=== PATIENT | female | born 1980 | race African-American/Black ===

== ENCOUNTER 2016-10-05 06:06 | Inpatient (IN) | payer MEDICAID ==
[~2016-10-05] VITALS: Ht 167.6 cm; Wt 136.1 kg
[2016-10-05] MEDS ORDERED: SODIUM CHLORIDE 0.9% 1,000 ML IV ONE ×3 (06:31→09:05)
[2016-10-05 06:58] LABS: BASOPHILS % 0.8 % (0.0-2.0); EOSINOPHILS % 1.6 % (0.0-5.0); HEMATOCRIT. 28.2 % (36.0-48.0); HEMOGLOBIN. 9.3 g/dL (12.0-16.0); LYMPHOCYTES % 26.6 % (20.0-50.0); MEAN CORPUSCULAR HEMOGLOBIN 27.7 pg (28.0-32.0); MEAN CORPUSCULAR VOLUME 83.9 fL (81.0-99.0); MEAN PLATELET VOLUME 8.6 fl (7.4-10.4); MONOCYTES % 5.1 % (2.0-8.0); NEUTROPHILS % 65.9 % (40.0-76.0); PLATELET 269 x1000/uL (130-400); RED BLOOD CELL COUNT 3.36 mill/uL (4.2-5.4); RED CELL DISTRIBUTION WIDTH 15.2 % (11.6-14.6)
[2016-10-05 07:13] LABS: B-HCG QUANTITATIVE 264 mIU/mL (<3); CARBON DIOXIDE 26 mEq/L (21-32); CHLORIDE 106 mEq/L (98-107)
[2016-10-05] MEDS ORDERED: ONDANSETRON HCL 4MG/2ML VIAL IV ONE (07:15)
[2016-10-05] MEDS ORDERED: MORPHINE SULFATE 4 MG/ML CPJ (NOT FOR IM USE) IV ONE (07:15)
[2016-10-05 07:27] LABS: INR 1.1; PARTIAL THROMBOPLASTIN TIME 27.2 sec (24.0-34.0)
[2016-10-05] MEDS ORDERED: DEXT 5%/LR + PITOCIN 20UNITS/L 1,000 ML IV ONE (07:30)
[2016-10-05 09:05] LABS: HEMOGLOBIN 8.2 g/dL (12.0-16.0); MEAN CORPUSCULAR HEMOGLOBIN 27.9 pg (28.0-32.0); MEAN CORPUSCULAR VOLUME 85.1 fL (81.0-99.0); PLATELET 225 x1000/uL (130-400); RED BLOOD CELL COUNT 2.94 mill/uL (4.2-5.4); RED CELL DISTRIBUTION WIDTH 14.9 % (11.6-14.6)
[2016-10-05 12:00] VITALS: BP 106/70
[2016-10-05 16:00] VITALS: BP 106/70
[2016-10-05] MEDS ORDERED: ACETAMINOPHEN WITH CODEINE 300/30MG TABLET PO PRN ×2 (16:30)
[2016-10-05] MEDS ORDERED: GLYCERIN/WITCH HAZEL LEAF MEDICATED PAD TOP PRN (16:30)
[2016-10-05] MEDS ORDERED: METHYLERGONOVINE MALEATE 0.2 MG/ML IM PRN (16:30)
[2016-10-05] MEDS ORDERED: BISACODYL 10MG SUPP PR PRN (16:30)
[2016-10-05] MEDS ORDERED: IBUPROFEN 400MG TABLET PO PRN (16:30)
[2016-10-05] MEDS ORDERED: HEMORRHOIDAL SUPP PR PRN (16:30)
[2016-10-05] MEDS ORDERED: RHO(D) IMMUNE GLOBULIN 300 MCG/SYR IM PRN (16:30)
[2016-10-05] MEDS: MAGNESIUM/ALUMINUM HYDROXIDE/SIMETHICONE 30ML UDC PO SCH ×2 (17:50→18:21)
[2016-10-05] MEDS: SIMETHICONE 80MG TABLET CHEW PO SCH (18:20)
[2016-10-05 18:23] VITALS: BP 105/67
[2016-10-05] MEDS ORDERED: ASPI-986 PO (18:25)
[2016-10-05] MEDS ORDERED: PREN-88 PO (18:25)
[2016-10-05] MEDS ORDERED: FERR-63 PO (18:25)
[2016-10-05 20:00] VITALS: BP 100/61
[2016-10-05] MEDS: DOCUSATE SODIUM 100MG CAPSULE PO SCH (21:00)
[2016-10-05 23:43] LABS: *AMPHETAMINES SCREEN URINE NEGATIVE (NEGATIVE); *BARBITURATES SCREEN URINE NEGATIVE (NEGATIVE); *BENZODIAZEPINES SCREEN URINE NEGATIVE (NEGATIVE); *COCAINE SCREEN URINE NEGATIVE (NEGATIVE); CANNABINOID URINE SCREEN NEGATIVE (NEGATIVE); METHADONE URINE SCREEN NEGATIVE (NEGATIVE); OPIATES URINE SCREEN NEGATIVE (NEGATIVE); PHENCYCLIDINE URINE SCREEN NEGATIVE (NEGATIVE)
[2016-10-06] VITALS: BP 112/58
[2016-10-06 04:00] VITALS: BP 119/63
[2016-10-06 06:29] LABS: BASOPHILS % 0.4 % (0.0-2.0); EOSINOPHILS % 0.7 % (0.0-5.0); LYMPHOCYTES % 19.6 % (20.0-50.0); MEAN CORPUSCULAR HEMOGLOBIN 28.2 pg (28.0-32.0); MEAN CORPUSCULAR VOLUME 84.4 fL (81.0-99.0); MEAN PLATELET VOLUME 8.8 fl (7.4-10.4); MONOCYTES % 4.8 % (2.0-8.0); NEUTROPHILS % 74.5 % (40.0-76.0); PLATELET 188 x1000/uL (130-400); RED BLOOD CELL COUNT 2.38 mill/uL (4.2-5.4); RED CELL DISTRIBUTION WIDTH 14.6 % (11.6-14.6)
[2016-10-06 06:42] LABS: HEMOGLOBIN. 6.7 g/dL (12.0-16.0)
[2016-10-06 06:43] LABS: HEMATOCRIT. 20.1 % (36.0-48.0)
[2016-10-06] MEDS: MAGNESIUM/ALUMINUM HYDROXIDE/SIMETHICONE 30ML UDC PO SCH ×4 (07:50→21:00)
[2016-10-06 08:00] VITALS: BP 115/58
[2016-10-06] MEDS: SIMETHICONE 80MG TABLET CHEW PO SCH ×4 (08:17→21:00)
[2016-10-06] MEDS: PRENATAL VIT/FE FUMARATE/FA TABLET PO SCH (08:18)
[2016-10-06] MEDS: FERROUS SULFATE 325MG TABLET PO SCH ×3 (08:18→17:36)
[2016-10-06 12:00] VITALS: BP 109/69
[2016-10-06 16:00] VITALS: BP 95/63
[2016-10-06 20:00] VITALS: BP 103/63
[2016-10-06] MEDS: DOCUSATE SODIUM 100MG CAPSULE PO SCH (21:00)
[2016-10-07] VITALS: BP 107/69
[2016-10-07 04:00] VITALS: BP 116/81
[2016-10-07] MEDS: MAGNESIUM/ALUMINUM HYDROXIDE/SIMETHICONE 30ML UDC PO SCH (07:50)
[2016-10-07 08:00] VITALS: BP 121/62
[2016-10-07] MEDS: SIMETHICONE 80MG TABLET CHEW PO SCH (08:00)
[2016-10-07] MEDS: FERROUS SULFATE 325MG TABLET PO SCH (08:01)
[2016-10-07] MEDS: PRENATAL VIT/FE FUMARATE/FA TABLET PO SCH (08:01)
[2016-10-07 10:44] VITALS: BP 121/62
== END 2016-10-07 11:10 | disposition home or self-care (01) | DRG 564 ==
LOC: ER 06:29 → ENRESERV 10:33 → 6EST 12:14
PROVIDERS: ADMIT Obstetrics & Gynecology; ATTEND Obstetrics & Gynecology
PROC: 3E033VJ Introduction of Other Hormone into Peripheral Vein, Percutaneous Approach (ICD-10-PCS; principal; 2016-10-05)
PROC: 30233N1 Transfusion of Nonautologous Red Blood Cells into Peripheral Vein, Percutaneous Approach (ICD-10-PCS; 2016-10-05)
DX: O03.9 Complete or unspecified spontaneous abortion without complication (principal); Z68.42 Body mass index [BMI] 45.0-49.9, adult; D62 Acute posthemorrhagic anemia; O26.51 Maternal hypotension syndrome, first trimester; E66.01 Morbid (severe) obesity due to excess calories; O99.211 Obesity complicating pregnancy, first trimester; O99.011 Anemia complicating pregnancy, first trimester; Z91.013 Allergy to seafood; Z3A.13 13 weeks gestation of pregnancy; O09.521 Supervision of elderly multigravida, first trimester
CPT/HCPCS: 36415; 36430; 76801; 80048; 80305; 82962; 84702; 85025; 85027; 85610; 85730; 86850; 86900; 86920; 88305; 93005; 99291; J2590; J7030; J7040; P9016